=== PATIENT | male | born 1980 | race Caucasian/White ===

== ENCOUNTER 2022-10-19 08:16 | Day surgery (SDC) | payer OTHER ==
[~2022-10-19] VITALS: Ht 182.9 cm; Wt 133.3 kg
[~2022-10-19 08:16] MED LIST: ALBU90OI INH; LEVSOD75 PO; Prednisone20 MG PO; SPACE CHAMBER1 EACH INH; [UNRECOGNIZED DRUG - REMARK]
[2022-10-19 10:52] VITALS: BP 131/85
--- NOTE | 2022-10-19 10:54 | NUR ---
10/19/22 1054 Mitzi Barahona IV DC'D CATH INTACT. PRESSURE DRESSING APPLIED. PT TOLERATED WELL
== END 2022-10-19 11:01 | disposition home or self-care (01) ==
LOC: ORSCSDS 08:16
PROVIDERS: Internal Medicine Gastroenterology
PROC: 0DBL8ZX Excision of Transverse Colon, Via Natural or Artificial Opening Endoscopic, Diagnostic (ICD-10-PCS; principal; 2022-10-19 09:30)
DX: Z12.11 Encounter for screening for malignant neoplasm of colon (principal); Z83.71 Family history of colonic polyps; K63.5 Polyp of colon; K64.0 First degree hemorrhoids; I10 Essential (primary) hypertension; G47.33 Obstructive sleep apnea (adult) (pediatric); E03.9 Hypothyroidism, unspecified; Z79.899 Other long term (current) drug therapy; E66.9 Obesity, unspecified; Z68.39 Body mass index [BMI] 39.0-39.9, adult
CPT/HCPCS: 88305; J2250; J2405; J2704; J7120